=== PATIENT | female | born 1945 | race Caucasian/White ===

== ENCOUNTER → 2017-09-25 | Outpatient (CLI) | payer OTHER, BC ==
[~2017-09-25] MED LIST: ACET-1256 PO; ALPR-411 PO; ASPI81TA28 PO; ATEN50TA8 PO; CARV3.122 PO; CLB100 PO; FLAX10007 PO; GADAVIST IV PRN; HYDR-3419 PO; HYDR25TA5 PO; MULT-1092 PO; PRLSR20 PO; PSYL0.524 PO; SERT50TA PO
--- NOTE | 2017-09-25 15:09 | DIAGNOSTIC IMAGING REPORT ---
MRI OF THE BRAIN COMBO CLINICAL HISTORY: Lung cancer. COMPARISON STUDY: No priors. TECHNIQUE: MRI of the brain was performed utilizing various T1 and T2-weighted sequences in the axial, sagittal, and coronal planes. Contrast-enhanced sequences were acquired following the administration of 9 cc of Gadavist. FINDINGS: Brain parenchyma: There are age-related involutional changes noting moderate patchy subcortical and periventricular microangiopathic disease. There is no hemorrhage or mass effect. There is no restricted diffusion to suggest acute ischemia. No enhancing mass lesion is identified on the postcontrast images. Coppola-white matter differentiation is preserved. No extra-axial fluid collection is seen. The cerebellar tonsils are normal in configuration. Ventricles, sulci, and cisterns: Prominent secondary to involutional change. Pituitary and sella: Unremarkable. Intracranial vasculature: Normal flow voids are maintained at the skull base. Orbits: The bony orbits are grossly intact. Orbital contents are normal in appearance. Sinuses and mastoids: Trace fluid is seen within the maxillary antra. The remaining paranasal sinuses are clear. The mastoid air cells are well pneumatized. Calvarium: Unremarkable. Soft tissues: There is a small lipoma in the frontal scalp. Cervical cord: Partially visualized cervical spinal cord is normal in morphology and signal intensity. IMPRESSION: 1. Senescent changes as above with no hemorrhage, enhancing mass, or evidence of acute ischemia. 2. Specifically, there is no MRI evidence of intracranial metastatic disease. Electronically signed by: Jb Cohne M.D. 09/25/2017 3:08 PM Dictated Date/Time: 09/25/2017 3:05 PM
== END | disposition home or self-care (01) ==
LOC: C.MRI 13:29
PROVIDERS: ATTEND Internal Medicine Hematology & Oncology
DX: C34.81 Malignant neoplasm of overlapping sites of right bronchus and lung (principal)

== ENCOUNTER → 2017-09-29 | Outpatient (CLI) | payer OTHER, BC ==
--- NOTE | 2017-09-29 13:08 | DIAGNOSTIC IMAGING REPORT ---
PET/CT SKULL-THIGH CLINICAL HISTORY: NON SMALL CELL LUNG CA COMPARISON STUDY: Outside chest CT dated 06/25/2017 FINDINGS: Patient was injected with 11.4 mCi of F 18 FDG. Following the standard induction phase, PET/CT scanning was performed from the skull base the upper thigh region. Activity within neck is felt to be physiologic. Activity within the thorax is felt to be physiologic. There are innumerable bilateral pulmonary nodules. These remain essentially unchanged in size. The nodules are not significantly FDG avid. Within the abdomen, there is physiologic urinary tract and bowel activity. There is no pathologic hepatic or adrenal gland activity. There is no pathologic skeletal activity. IMPRESSION: 1. Innumerable bilateral pulmonary nodules, the largest of which measures 11 mm. These remain essentially stable in size when compared the prior Anderson chest CT performed in June 2017. These nodules do not demonstrate significant FDG activity 2. No pathologic parenchymal or clovis FDG activity identified Electronically signed by: Wyatt Palacios M.D. 09/29/2017 1:06 PM Dictated Date/Time: 09/29/2017 12:58 PM
== END | disposition home or self-care (01) ==
LOC: C.PET 10:03
PROVIDERS: ATTEND Internal Medicine Hematology & Oncology
DX: C34.81 Malignant neoplasm of overlapping sites of right bronchus and lung (principal)

== ENCOUNTER → 2017-11-03 | Outpatient (CLI) | payer OTHER, BC ==
[~2017-11-03] MED LIST changes: -GADAVIST IV PRN
== END | disposition home or self-care (01) ==
LOC: C.CPL 14:01
PROVIDERS: ATTEND Surgery
DX: C34.90 Malignant neoplasm of unspecified part of unspecified bronchus or lung (principal); I44.0 Atrioventricular block, first degree

== ENCOUNTER → 2017-11-04 | Day surgery (SDC) | payer OTHER, BC ==
[2017-10-29 11:33] VITALS: BMI 34.0
[~2017-11-04] VITALS: Ht 162.6 cm; Wt 91.4 kg
[~2017-11-04] MED LIST changes: +ATROPINE SULFATE 0.1 MG/ML 5ML SYR IV PRN; +BACITRACIN 50000 UNIT VIAL ONE; +CEFAZOLIN SOD 1 GM VIAL ONE; +EpHEDrine SULFATE INJ 50 MG/ML AMP IV PRN; +FENTANYL CITRATE INJ 50 MCG/1 ML 2 ML VIAL IV PRN; +FENTANYL CITRATE INJ 50 MCG/1 ML 2 ML VIAL ONE; +HYDROCODONE/ACETAMIN 5/325MG TAB PO PRN; +HYDROmorphone INJ 0.5 MG/0.5 ML SYR IV PRN; +LACTATED RINGER'S 1000ML 1,000 ML IV SCH; +LIDOCAINE HCL 1% 20 ML VIAL ONE; +LIDOCAINE HCL 2% 2 ML VIAL (20MG/ML) ONE; +MIDAZOLAM HCL 1 MG/ML 2ML VIAL ONE; +MoRPHine SULFATE 2 MG/ML CARP IV PRN; +ONDANSETRON INJ 2 MG/ML 2 ML VIAL IV PRN; +PHENYLEPHRINE 100MCG/ML 5ML SYR IV PRN; +PROPOFOL IV EMULSION 10 MG/ML 20 ML VIAL IV ONE
--- NOTE | 2017-11-04 06:45 | History & Physical Bridge Note ---
H&P Re-Evaluation Bridge Note: I have examined the patient, reviewed the History & Physical and in the interval since the performance of the History & Physical I have noted the following changes of clinical significance: No changes noted pt examined all questions answered to be here later
[2017-11-04 06:47] VITALS: BP 159/83; PULSE 69; TEMP 36.8; O2SAT 97; Ht 162.6 cm; Wt 91.4 kg
--- NOTE | 2017-11-04 07:30 | Discharge Instructions ---
Discharge Instructions Date of Service Nov 04, 2017. Visit Reason for Visit: Lung Cancer Discharge Discharge Diagnosis / Problem: A-port Discharge Goals Goal(s): Improve disease control Activity Recommendations Activity Limitations: as noted below Shower/Bathe: tomorrow Anesthesia . Post Anesthesia Instructions: If you have had General Anesthesia or IV Sedation: * Do not drive today. * Resume driving when surgeon permits. * Do not make important decisions or sign legal documents today. * Call surgeon for: 1. Temperature elevations greater than 101 degrees F. 2. Uncontrollable pain. 3. Excessive bleeding. 4. Persistent nausea and vomiting. 5. Medication intolerance (nausea, vomiting or rash). * For nausea and vomiting use only clear liquids such as: tea, soda, bouillon until nausea subsides, then gradually increase diet as tolerated. * If you have any concerns or questions, call your surgeon's office. If physician is unavailable and it is an emergency, call 911 or go to the nearest emergency room. . Instructions / Follow-Up Instructions / Follow-Up Dr. Anaya as needed, call [phone] for any questions or concerns Do not take Tylenol if you are taking Vicodin Diet Recommendations Recommended Home Diet: no limitations Pending Studies Studies pending at discharge: no Medical Emergencies . Who to Call and When: Medical Emergencies: If at any time you feel your situation is an emergency, please call 911 immediately. . Non-Emergent Contact Non-Emergency issues call your: Surgeon Call Non-Emergent contact if: you have a fever, temperature is above 101.5, your pain is not controlled, wound has increased redness, wound has increased pain . . "Provider Documentation" section prepared by Ritesh Sen. . [place] Drug Monitoring Program Search Results: no issues identified
--- NOTE | 2017-11-04 08:56 | [facility] Post Operative Brief Note ---
Immediate Operative Summary Operative Date Nov 04, 2017. Pre-Operative Diagnosis Adenocarcinoma of Lung, Need for Long-Term Intravenous Access Post-Operative Diagnosis Adenocarcinoma of Lung, Need for Long-Term Intravenous Access Procedure(s) Performed Insertion of Infusaport Left Subclavian Surgeon Dr. Anaya Packaging Line Attendant Surgeon(s) none Estimated Blood Loss 5 ml Findings Consistent with Post-Op Diagnosis Specimens none per surgeon Anesthesia Type MAC
--- NOTE | 2017-11-04 09:16 | DIAGNOSTIC IMAGING REPORT ---
CHEST ONE VIEW PORTABLE CLINICAL HISTORY: port placement tube position COMPARISON STUDY: 06/17/2017 FINDINGS: Central catheter placed in the superior vena cava at the juncture with the right atrium. No evidence pneumothorax. IMPRESSION: Catheter within the superior vena cava at the juncture with the right atrium. No evidence pneumothorax. The above report was generated using voice recognition software. It may contain grammatical, syntax or spelling errors. Electronically signed by: Taj Chi M.D. 11/04/2017 9:14 AM Dictated Date/Time: 11/04/2017 9:11 AM
--- NOTE | 2017-11-04 09:21 | Anesthesiology Progress Note ---
Anesthesia Post Op Note Date & Time Nov 04, 2017 at 09:20 Vital Signs Pain Intensity: 0 Vital Signs Past 12 Hours Date Time Temp Pulse Resp B/P (MAP) Pulse Ox O2 Delivery O2 Flow Rate FiO2 11/04/17 09:10 59 14 128/78 95 Room Air 11/04/17 09:01 36.3 60 18 122/68 98 Room Air 11/04/17 06:47 36.8 69 18 159/83 (108) 97 Room Air Notes Mental Status: alert / awake / arousable, participated in evaluation Pt Amnestic to Procedure: Yes Nausea / Vomiting: adequately controlled Pain: adequately controlled Airway Patency, RR, SpO2: stable & adequate BP & HR: stable & adequate Hydration State: stable & adequate Anesthetic Complications: no major complications apparent Awake, doing well, no complaints. VSS
[2017-11-04 09:30] VITALS: BP 156/73; PULSE 56; TEMP 36.9; O2SAT 96
[2017-11-04 10:00] VITALS: BP 154/70; PULSE 59; O2SAT 98
[2017-11-04 10:28] VITALS: BP 145/75; PULSE 60; TEMP 36.5; O2SAT 97
--- NOTE | 2017-11-04 13:53 | OPERATIVE REPORT ---
DATE OF OPERATION: 11/04/2017 SURGEON: Kike Anaya MD. PREOPERATIVE DIAGNOSIS: Lung cancer, need for chemotherapy, lack of venous access. POSTOPERATIVE DIAGNOSIS: Same. PROCEDURE: MRI compatible port through the left subclavian. SUMMARY: The patient was brought into the operating room. A roll placed underneath her shoulders. Systemic antibiotics were given. The left neck and chest was prepped with Betadine scrubbing solution and properly draped. The patient was placed in low Trendelenburg position. We then accessed with local anesthetic and after IV sedation was given at the angle of the clavicle, we accessed the subclavian vein without any difficulty. Guidewire positioned fluoroscopically superior vena cava. At this point, we made another counter incision below this about an inch or so. The patient had a lot of significant and redundant fatty tissue. Incision was made after local anesthetic was used to approximate an inch and a half long, deepened through subcutaneous tissue sufficiently enough to create an inferior flap for the reservoir. The tested the reservoir until easily palpated through the skin. At this point, we then connected the superior flap to where the insertion site of the guidewire was. We pulled the guidewire through the inferior incision. With the patient in Trendelenburg position we then placed peel-away sheath, placing the catheter in superior vena cava right atrial area fluoroscopically. At this point, the catheter was approximately 25 cm or so from the skin edges. We cut the catheter about 28 cm, placed the black bolster and connected the reservoir and secured it in place. We aspirated and flushed easily. We then placed the reservoir to the previously made pocket, suturing the three eyes with 3-0 nylon suture. Did not rotation, we checked the system and appeared satisfactory. There were no kinking of the catheter. We aspirated and flushed the skin again without any difficulty. We closed the wound in multiple 2-0 and 3-0 Dexon and 4-0 continuous 0 Monocryl. Steri-Strips applied. Prior to leaving the room we reimaged the whole system. The catheter appeared to be in superior vena cava right atrial area and easily flushed and aspirated. I attest to the content of the Intraoperative Record and any orders documented therein. Any exception s are noted below.
== END | disposition home or self-care (01) ==
LOC: C.ACU 06:21
PROVIDERS: ATTEND Surgery
DX: C34.90 Malignant neoplasm of unspecified part of unspecified bronchus or lung (principal); I10 Essential (primary) hypertension; E66.9 Obesity, unspecified; K21.9 Gastro-esophageal reflux disease without esophagitis; F41.9 Anxiety disorder, unspecified; Z90.710 Acquired absence of both cervix and uterus; Z98.890 Other specified postprocedural states; Z79.899 Other long term (current) drug therapy; Z79.82 Long term (current) use of aspirin; Z68.35 Body mass index [BMI] 35.0-35.9, adult; Z82.49 Family history of ischemic heart disease and other diseases of the circulatory system

== ENCOUNTER → 2017-12-08 | Outpatient (CLI) | payer OTHER, BC ==
[~2017-12-08] MED LIST changes: -ACET-1256 PO; -ATROPINE SULFATE 0.1 MG/ML 5ML SYR IV PRN; -BACITRACIN 50000 UNIT VIAL ONE; -CEFAZOLIN SOD 1 GM VIAL ONE; -EpHEDrine SULFATE INJ 50 MG/ML AMP IV PRN; -FENTANYL CITRATE INJ 50 MCG/1 ML 2 ML VIAL IV PRN; -FENTANYL CITRATE INJ 50 MCG/1 ML 2 ML VIAL ONE; -HYDROCODONE/ACETAMIN 5/325MG TAB PO PRN; -HYDROmorphone INJ 0.5 MG/0.5 ML SYR IV PRN; -LACTATED RINGER'S 1000ML 1,000 ML IV SCH; -LIDOCAINE HCL 1% 20 ML VIAL ONE; -LIDOCAINE HCL 2% 2 ML VIAL (20MG/ML) ONE; -MIDAZOLAM HCL 1 MG/ML 2ML VIAL ONE; -MoRPHine SULFATE 2 MG/ML CARP IV PRN; -ONDANSETRON INJ 2 MG/ML 2 ML VIAL IV PRN; +OPTIRAY 320 IV PRN; -PHENYLEPHRINE 100MCG/ML 5ML SYR IV PRN; -PROPOFOL IV EMULSION 10 MG/ML 20 ML VIAL IV ONE
--- NOTE | 2017-12-08 13:22 | DIAGNOSTIC IMAGING REPORT ---
(CHEST) THORAX WITH CLINICAL HISTORY: 72 years-old Female presenting with C34.81 bilateral lung cancer, on chemotherapy, no history of surgery. TECHNIQUE: Multidetector CT imaging of the chest was performed without the use of intravenous contrast. IV contrast: 94 mL of Optiray 320. A dose lowering technique was used consistent with the principles of ALARA (as low as reasonably achievable). COMPARISON: 06/25/2017. CT DOSE (mGy.cm): The estimated cumulative dose is 512.60 mGycm. FINDINGS: Medical Billing Specialist topogram: Cholecystectomy clips. Left subclavian Mediport. On soft tissue windows, normal thyroid and thoracic inlet. No axillary, supraclavicular, hilar, or mediastinal lymphadenopathy. Atherosclerosis of the aorta. Normal heart size. No pericardial or pleural effusion. Cholecystectomy clips. Fat stranding in the region of the pancreatic tail may be present though evaluation of the upper abdomen is degraded by motion artifact. Subcentimeter calcified splenic arterial aneurysms may be present. On lung windows, significant interval progression of disease with numerous irregular lesions throughout all 5 lobes which have progressed in number since the prior exam. Many of these lesions demonstrate peripheral groundglass. Several index lesions are measured: 1. Centrally solid peripherally groundglass 14 mm right upper lobe nodule (series 4 image 108), previously 9 mm 2. Centrally cavitating solid 12 mm right lower lobe nodule (series 4 image 127), previously 8 mm 3. Solid 11 mm left lower lobe nodule (series 4 image 187), previously 9 mm Central airways patent. On bone windows, degenerative changes of the spine. No destructive osseous lesion. IMPRESSION: 1. Significant interval progression of disease evidenced by increased size and number of numerous metastatic lesions throughout all 5 lobes. Peripheral groundglass surrounding many of these lesions could suggest surrounding hemorrhage or invasion. 2. Possible fat stranding in the region of the pancreatic tail though evaluation of the upper abdomen is degraded by motion artifact. Correlate with lipase to exclude pancreatitis. Electronically signed by: Fred Ames M.D. 12/08/2017 1:21 PM Dictated Date/Time: 12/08/2017 1:14 PM
== END | disposition home or self-care (01) ==
LOC: C.CTS 12:41
PROVIDERS: ATTEND Internal Medicine Hematology & Oncology
DX: C34.81 Malignant neoplasm of overlapping sites of right bronchus and lung (principal)